=== PATIENT | male | born 1965 | race Caucasian/White ===

== ENCOUNTER 2018-02-14 11:27 | Emergency (ER) | payer OTHER ==
[~2018-02-14] VITALS: Ht 188 cm; Wt 118.8 kg
[~2018-02-14 11:27] MED LIST: ASPIR 8181 M1 PO; CLEOCIN300 MG PO; FISH OIL 1,0001 EA10 PO; LIPITOR20 MG PO; METOPROLOL SUCC25 MG PO; NO FLUSH NIACI1 EACH PO; NORCO 5/3251 TABLET PO
[2018-02-14 12:29] LABS: HEMATOCRIT 47.8 % (38.0-50.0); HEMOGLOBIN 16.8 G/DL (12.5-16.6); MCH 31.3 PG (29.0-34.0); MCHC 35.1 G/DL (30.0-36.0); MCV 89.2 FL (86-99); PLATELET COUNT 169 K/uL (156-360); RBC DIS.WIDTH-CV 13.4 % (11.8-14.6); RBC DIS.WIDTH-SD 43.6 % (39-53); RED BLOOD COUNT 5.36 M/uL (4.00-5.50); WHITE BLOOD COUNT 10.4 K/uL (4.1-10.2)
[2018-02-14 12:43] LABS: ALBUMIN 4.3 g/dL (3.2-4.8); CHLORIDE 105 mEq/L (99-109); POTASSIUM 4.1 mEq/L (3.7-5.4); SODIUM 141 mEq/L (136-147)
[2018-02-14 12:46] LABS: GLUCOSE 96 mg/dL (70-99); TOTAL PROTEIN 6.8 g/dL (6.4-8.3)
[2018-02-14 12:47] LABS: TOTAL BILIRUBIN 0.7 mg/dL (0.0-1.0)
[2018-02-14 12:49] LABS: ALKALINE PHOSPHATASE 74 IU/L (3-129); CREATININE 0.8 mg/dL (0.6-1.3); GFR ESTIMATE (CALCULATED) > 59 mL/min/ (58.99-99999)
[2018-02-14 12:50] LABS: UREA NITROGEN (BUN) 10 mg/dL (9-23)
[2018-02-14 12:51] LABS: AST (GOT) 26 IU/L (2-34)
[2018-02-14 12:52] LABS: ALT (GPT) 47 IU/L (3-49)
[2018-02-14 12:53] LABS: LIPASE 39 U/L (1.0-51.0)
[2018-02-14 13:13] LABS: APPEARANCE CLEAR ((CLEAR)); BILIRUBIN NEGATIVE; BLOOD NEGATIVE; COLOR STRAW ((YELLOW)); GLUCOSE (STRIP) NEGATIVE; KETONES NEGATIVE; LEUKOCYTES NEGATIVE; NITRITE NEGATIVE; PROTEIN (STRIP) NEGATIVE; SPECIFIC GRAVITY 1.004 (1.000-1.030); UCUL ADDED? NO; UROBILINOGEN 0.2 MG/DL (0.2-1.0)
[2018-02-14] MEDS ORDERED: NORCO 10/3251 TABLET PO (14:42)
[2018-02-14 14:54] VITALS: BP 119/75
== END 2018-02-14 15:01 | disposition home or self-care (01) ==
LOC: EME 11:27
DX: S39.011A Strain of muscle, fascia and tendon of abdomen, initial encounter (principal); K76.89 Other specified diseases of liver; I25.2 Old myocardial infarction; E78.5 Hyperlipidemia, unspecified; I10 Essential (primary) hypertension; F17.200 Nicotine dependence, unspecified, uncomplicated; Z95.9 Presence of cardiac and vascular implant and graft, unspecified; Z98.890 Other specified postprocedural states; Z79.82 Long term (current) use of aspirin
CPT/HCPCS: 74177; 80053; 81003; 83690; 85027; 99281; 99285; J3010